=== PATIENT | male | born 1955 | race Caucasian/White ===

== ENCOUNTER 2021-05-25 21:25 | Emergency (ER) | payer BC, SELFPAY ==
[2021-05-25 21:26] VITALS: BP 142/80; PULSE 67; RESP 15; TEMP 36.6; O2SAT 100; BMI 25.8
[2021-05-25 22:56] VITALS: RESP 16
[2021-05-25 23:10] LABS: Absolute Lymphocyte Count 1.03 X10^3/uL (0.83-4.51); Basophil# 0.02 X10^3/uL; Basophil% 0.3 % (0-1); Eosinophil# 0.26 X10^3/uL; Eosinophils% 3.6 % (0-5); Hematocrit 40.2 % (40-54); Lymphocyte # 1.03 X10^3/ul (0.83-4.51); Lymphocyte % 14.4 % (19-41); Mean Corp Hgb Conc 34.8 g/dL (32-36); Mean Corpuscular Hgb 32.2 pg (27.0-32.0); Mean Corpuscular Volume 92.4 fL (80-94); Mean Platelet Vol. 10.7 fl (6.2-12.0); Monocyte# 0.78 X10^3/uL; Monocyte% 10.9 % (0-10); NRBC Flagged by Analyzer 0 % (0-5); Neutrophil # 5.04 X10^3/uL (2.7-7.7); Neutrophil % 70.5 % (47-70); Platelet Count 422 K/mm3 (150-450); RBC Distribution Width CV 12.9 % (11.6-14.6); RBC Distribution Width SD 43.5 fl (35.1-43.9); Red Blood Count 4.35 M/mm3 (4.6-6.2); White Blood Count 7.2 K/mm3 (4.4-11.0)
[2021-05-25 23:26] LABS: ALB/GLOB Ratio 0.9 RATIO (0.9-2.4); AST(SGOT) 40 U/L (15-37); Alanine Aminotransfer ALT/SGPT 41 U/L (16-61); Albumin, Serum 3.6 g/dL (3.2-5.0); Alkaline Phosphatase 73 U/L (45-117); Anion Gap 2 (5-15); BUN 17 mg/dL (7-18); BUN/Creat Ratio 20.5 RATIO (10-20); Chloride 104 mmol/L (98-107); Creatinine, Serum 0.83 mg/dL (0.70-1.30); EST Glomerular Filtration Rate 99 mL/min (>60); Est Glom Filt Rate - Afr Amer 120 mL/min (>60); Estimated Creatinine Clearance 88.73 ml/min; Globulin 3.8 g/dL (2.2-4.2); Glucose 97 mg/dL (74-106); Lipase 151 U/L (73-393); Potassium 3.8 mmol/L (3.5-5.1); Protein, Total 7.4 g/dL (6.4-8.2); Sodium Level 138 mmol/L (136-145)
--- NOTE | 2021-05-26 00:58 | EDS_ITS ---
HPI History of Present Illness Chief Complaint: Abd Pain Detail of Chief Complaint: Upper abdominal pain in the epigastric left upper quadrant that radiated to Informant: patient Onset/Context/Timing Onset: Hours Context: Sudden Onset Timing: Intermittent (Duration 5 to 10 minutes) Quality: Pain Location: Upper abdomen as previously described Current Severity: Gone Maximum Severity: Severe Worsened by: Nothing Relieved by: Nothing Associated Symptoms Associated Symptoms: None Narrative Narrative: Patient is a 66-year-old healthy male with no significant past medical history who presents with epigastric pain/left upper quadrant pain near the left costal margin that then radiated to the right side. He denies intolerance to greasy or fried foods. He denies history of biliary disease. He denies history of reflux, peptic ulcer disease, gastritis or esophagitis. He denies black or maroon-colored stool. He denies chest discomfort. He denied radiation of the pain to his back. He denies radiation of the pain to his neck, jaw or shoulders. He denies diaphoresis, shortness of breath or nausea. He states when he eats try to straighten out the pain was worse. He is never experienced anything like this before. He states since he is 66 lives alone he wanted to be checked out to make sure that it was not anything serious. Prior similar symptoms: No Recent Illness/Hospitalization: No PFSH PFSH Medical History no medical history no medical history Home Medications hydrocodone-acetaminophen 1 tab PO Q6H PRN PRN #10 tab 07/13/17 [Rx Last Taken Unknown] naproxen 500 mg PO BID #10 tab 07/13/17 [Rx Last Taken Unknown] Allergy/AdvReac Type Severity Reaction Status Date / Time No Known Allergies Allergy Verified 05/25/21 21:28 Family History no significant family his no significant family history Surgical History no surgical history Social History (Updated 05/26/21 @ 01:[address] Lewis Hines MD) household members: none Smoking Status: Never smoker alcohol intake: never substance use type: does not use what type of physical activity do you participate in: aerobics and weight training frequency: 5-6 times per week ROS ROS ED Constitutional Constitutional ED: Denies chills, fever(s), subjective, sweats or weight loss Eyes Eyes: Denies blurry vision, change in vision or diplopia ENT ENT ED: Denies ear pain, rhinorrhea or sore throat Cardiovascular Cardiovascular: Denies chest pain, orthopnea, palpitations, paroxysmal nocturnal dyspnea or racing heartbeat Respiratory/Chest Respiratory/Chest: Denies cough, dyspnea, dyspnea on exertion, orthopnea, paroxysmal nocturnal dyspnea or sputum Gastrointestinal Gastrointestinal: Reports abdominal pain; Denies constipation, diarrhea, nausea or vomiting Genitourinary Genitourinary ED: Denies dysuria, hematuria or urinary frequency Musculoskeletal Musculoskeletal: Denies arthralgias, back pain, myalgias or neck pain Integumentary Denies rash Neurologic Neurologic: Denies paresthesias or weakness Hematologic/Lymphatic Hematologic/Lymphatic: Denies anemia, easy bleeding or easy bruising EXAM Physical Exam Const Vital Signs: 05/25/21 21:26 05/25/21 22:56 Temperature 97.9 F Temperature Source Temporal Pulse Rate 67 Respiratory Rate 15 16 Blood Pressure 142/80 H Blood Pressure Mean 100 Pulse Ox 100 Oxygen Delivery Method Room Air Positive well nourished and well developed General Appearance ED: well developed and NAD; Negative for cyanotic, diaphoretic or pallor HEENT Reports moist mucous membranes HEENT Narrative: Head is atraumatic normocephalic. Ears normal. Nares patent. Eyes PERRL and EOMs intact bilaterally General Eye ED: Negative for pale conjunctiva or scleral icterus Neck no lymphadenopathy, supple and no JVD Resp normal respiratory effort and clear to auscultation bilaterally Cardio regular rate, regular rhythm, S1 normal heart sound, S2 normal heart sound and no murmurs GI normal to inspection, nondistended, normoactive bowel sounds, non-tender, non- distended and no masses; Negative for hepatosplenomegaly Auscultation: normoactive bowel sounds Palpation: soft Back/Spine no CVA tenderness Thoracic Spine / Upper Back: Negative for thoracic spinal tenderness or paraspinal muscle tenderness Extremity normal to inspection General Extremety ED: Negative for edema or tenderness General Extremity: Negative for edema Neuro oriented x3, CN's II-XII intact bilaterally and no sensory deficits noted Sensorium / Orientation: alert Motor Exam: strength 5/5 throughout Psych mental status grossly normal Skin no rashes or lesions noted, no wounds and skin turgor normal General Skin Exam: Negative for jaundice or pallor MDM MDM MDM Narrative Medical decision making narrative: Differential diagnosis may be muscle spasm, esophageal spasm, gastritis, reflux. Work-up included CBC, liver enzymes, lipas e and electrolytes. His work-up was unremarkable. Patient was informed the cause of his pain is unknown. He was informed of his laboratory results. He was discharged home in stable condition. Lab Data Labs: Laboratory Results - last 24 hr 05/25/21 05/25/21 22:55 22:55 WBC 7.2 RBC 4.35 L Hgb 14.0 Hct 40.2 MCV 92.4 MCH 32.2 H MCHC 34.8 RDW Std Deviation 43.5 RDW Coeff of Sadiq 12.9 Plt Count 422 MPV 10.7 Immature Gran % (Auto) 0.300 Neut % (Auto) 70.5 H Lymph % (Auto) 14.[address] [place] % (Auto) 10.9 H Eos % (Auto) 3.6 Baso % (Auto) 0.3 Absolute Neuts (auto) 5.0 Absolute Lymphs (auto) 1.03 Nucleated RBC % 0 Sodium 138 Potassium 3.8 Chloride 104 Carbon Dioxide 32.0 Anion Gap 2 L BUN 17 Creatinine 0.83 Estim Creat Clear Calc 88.73 Est GFR (MDRD) Af Amer 120 Est GFR (MDRD) Non-Af 99 BUN/Creatinine Ratio 20.5 H Glucose 97 Calcium 9.0 Total Bilirubin 0.40 AST 40 H ALT 41 Alkaline Phosphatase 73 Total Protein 7.4 Albumin 3.6 Globulin 3.8 Albumin/Globulin Ratio 0.9 Lipase 151 Discharge Plan Triage Chief Complaint: Abd Pain ED Provider: Lewis Hines Dx/Rx/DC Orders Clinical Impression: Acute upper abdominal pain Instructions: ED Epigastric Pain Uncertain Cause Prescriptions: No Action hydrocodone-acetaminophen 1 TABLET tablet 1 tab PO Q6H PRN PRN (Reason: Pain) Qty: 10 RF: 0 naproxen 500 MG tablet 500 mg PO BID Qty: 10 RF: 0 Primary Care Provider: Jatinder Burt Referrals: Jatinder Burt MD [Primary Care Provider] - As Needed Disposition Disposition: Home, Self Care
[2021-05-26 01:27] VITALS: BP 138/60; PULSE 82; RESP 18
== END 2021-05-26 01:28 | disposition home or self-care (01) ==
PROVIDERS: Emergency Provider Emergency Medicine; PCP Family Medicine
DX: R10.12 Left upper quadrant pain (principal); R10.13 Epigastric pain; Z79.1 Long term (current) use of non-steroidal anti-inflammatories (NSAID)
CPT/HCPCS: 80053; 83690; 85025; 99283; A4216